=== PATIENT | male | born 1990 | race Caucasian/White ===

== ENCOUNTER 2017-03-13 20:54 | Emergency (ER) | payer OTHER ==
[~2017-03-13] VITALS: Ht 167 cm; Wt 59.9 kg
[2017-03-13] MEDS ORDERED: TRAMADOL 50 MG50 MG PO (21:11)
[2017-03-13] MEDS ORDERED: TORADOL 10 MG T10 MG PO (21:12)
[2017-03-13] MEDS ORDERED: NORCO 5-325 TA1 EACH PO (21:43)
[2017-03-13] MEDS ORDERED: LIORESAL 10 MG10 MG PO (21:44)
[2017-03-13 22:02] VITALS: BP 118/71
== END 2017-03-13 22:04 | disposition home or self-care (01) ==
LOC: ER 20:54
DX: D36.10 Benign neoplasm of peripheral nerves and autonomic nervous system, unspecified (principal); F17.210 Nicotine dependence, cigarettes, uncomplicated